=== PATIENT | female | born 1990 | race Caucasian/White ===

== ENCOUNTER 2016-12-28 00:48 | Inpatient (IN) | payer OTHER ==
[2016-12-28 01:25] LABS: ROM Internal QC QC Line Present
[2016-12-28] MEDS ORDERED: Sodium Citrate/Citric Acid* 15 ML UDC PO ONE ×2 (01:57→02:43)
[2016-12-28] MEDS ORDERED: ceFOXitin 2 GM IVPREMIX* 2 GM/50 ML BAG IVPB ONE (01:57)
[2016-12-28] MEDS ORDERED: ceFOXitin 2 GM IVPREMIX* 2 GM/50 ML BAG ONE (02:28)
[2016-12-28] MEDS ORDERED: Sodium Citrate/Citric Acid* 15 ML UDC ONE (02:28)
[2016-12-28] MEDS ORDERED: Morphine PF AMP (0.5MG/ML)* 5 MG/10 ML AMP ONE (02:33)
[2016-12-28] MEDS ORDERED: Ondansetron INJ* 2 MG/ML VIAL ONE (02:35)
[2016-12-28] MEDS ORDERED: OXYTOCIN* 10 UNITS/ML 1 ML VIAL ONE (02:35)
[2016-12-28] MEDS ORDERED: Buffered Lidocaine 1% SYR 3ML* 3 ML/SYR SYRINGE INTRADERM ONE (02:43)
[2016-12-28] MEDS ORDERED: PROCHLORPERAZINE INJ 5 MG/ML 2 ML VIAL IV PRN ×2 (02:44→03:17)
[2016-12-28] MEDS ORDERED: HYDROmorphone* 1 MG/ML 1 ML SYR IV PRN (02:44)
[2016-12-28] MEDS ORDERED: Ondansetron INJ* 2 MG/ML VIAL IV PRN ×2 (02:44→03:17)
[2016-12-28] MEDS ORDERED: DiMENhydriNATE IV* 50 MG/ML VIAL IV PUSH PRN ×2 (02:44→03:17)
[2016-12-28] MEDS ORDERED: fentaNYL* 50 MCG/ML 2 ML VIAL (100 MCG VIAL) IV PRN (02:44)
[2016-12-28] MEDS ORDERED: Scopolamine 1.5 mg* PATCH TRANSDERM PRN ×2 (02:44→03:17)
[2016-12-28] MEDS ORDERED: diPHENhydraMINE IV* 50 MG/ML 1 ml VIAL (BENADRYL) IV PRN (03:17)
[2016-12-28] MEDS ORDERED: Naloxone* 0.4 MG/ML 1 ML VIAL IV PRN (03:17)
[2016-12-28] MEDS ORDERED: oxyCODONE/Acetamin 5/325 MG* TAB PO PRN ×2 (03:17→19:00)
[2016-12-28] MEDS ORDERED: Nalbuphine* 20 MG/ML 1 ML VIAL IV PRN (03:17)
[2016-12-28 03:27] LABS: Add Diff/Slide Review? Slide Review Added; Comments Flag Yes; Hematocrit 39 % (35-47); Hemoglobin 12.3 g/dl (12.0-16.0); Mean Corpuscular HGB Conc 32 g/dl (31-36); Mean Corpuscular Hemoglobin 27 pg (27-31); Mean Corpuscular Volume 83 fL (80-97); Mean Platelet Volume 9 um3 (7.4-10.4); Red Blood Count 4.63 10^6/ul (4.0-5.4); Red Cell Distribution Width 15 % (10.5-15); White Blood Count 13.8 10^3/ul (3.5-10.8)
[2016-12-28] MEDS ORDERED: HYDROmorphone* 1 MG/ML 1 ML SYR ONE ×2 (03:44→04:02)
[2016-12-28] MEDS ORDERED: EPHEDrine (Pressors)* 50 MG/ML VIAL ONE (04:04)
[2016-12-28] MEDS ORDERED: Phenylephrine IV* 40 MCG/ML 10 ML SYRINGE ONE (04:04)
[2016-12-28] MEDS ORDERED: Witch Hazel PAD* JAR TOPICAL PRN (04:17)
[2016-12-28] MEDS ORDERED: Dibucaine 1% 28.35 GM TUBE PR PRN (04:17)
[2016-12-28] MEDS ORDERED: Glycerin ADULT SUPP PR PRN (04:17)
[2016-12-28] MEDS ORDERED: Acetaminophen TAB* 325 MG PO PRN (04:17)
[2016-12-28] MEDS: Ibuprofen TAB* 600 MG PO PRN ×3 (08:34→21:32)
[2016-12-28] MEDS: Simethicone CHEW TAB* 80 MG PO SCH ×4 (08:34→21:32)
[2016-12-28] MEDS: Docusate CAP* 100 MG PO SCH ×3 (08:34→21:32)
[2016-12-28] MEDS ORDERED: Zolpidem TAB* 5 MG PO PRN (19:00)
--- NOTE | 2016-12-28 21:03 | PTEDU ---
Patient Name: JUAN NEFF JUAN NEFF selected video: Follow Me Mum: [facility] to view on 10/2016 at 9:02:22 PM from [id number]
[2016-12-29] MEDS: Ibuprofen TAB* 600 MG PO PRN ×3 (03:44→17:56)
[2016-12-29 06:07] LABS: Hematocrit 30 % (35-47); Hemoglobin 9.6 g/dl (12.0-16.0); Mean Corpuscular HGB Conc 32 g/dl (31-36); Mean Corpuscular Hemoglobin 26 pg (27-31); Mean Corpuscular Volume 83 fL (80-97); Mean Platelet Volume 8 um3 (7.4-10.4); Red Blood Count 3.64 10^6/ul (4.0-5.4); Red Cell Distribution Width 15 % (10.5-15); White Blood Count 12.1 10^3/ul (3.5-10.8)
[2016-12-29] MEDS: Ferrous Gluconate TAB* 324 MG TAB PO SCH ×2 (09:11→21:16)
[2016-12-29] MEDS: Simethicone CHEW TAB* 80 MG PO SCH ×3 (09:11→21:17)
[2016-12-29] MEDS: Docusate CAP* 100 MG PO SCH ×3 (09:11→21:16)
[2016-12-29] MEDS: oxyCODONE/Acetamin 5/325 MG* TAB PO PRN ×3 (09:14→21:16)
--- NOTE | 2016-12-29 12:42 | PTEDU ---
Patient Name: JUAN NEFF TAWANDAJUAN selected video: Never Ever Shake a Baby to view on 12/29/2016 at 12:41:33 PM from [id number]
[2016-12-30 00:11] VITALS: BP 124/81
[2016-12-30] MEDS: oxyCODONE/Acetamin 5/325 MG* TAB PO PRN (04:50)
[2016-12-30] MEDS: Ibuprofen TAB* 600 MG PO PRN (04:51)
[2016-12-30] MEDS: Simethicone CHEW TAB* 80 MG PO SCH (08:53)
[2016-12-30] MEDS: Docusate CAP* 100 MG PO SCH (08:54)
[2016-12-30] MEDS: Ferrous Gluconate TAB* 324 MG TAB PO SCH (08:54)
[2016-12-31] MEDS ORDERED: Scopolomine PATCH Remove* 1 NOTE MISC PATCH OFF ONE (02:44)
[2016-12-31] MEDS ORDERED: Scopolomine PATCH Remove* 1 NOTE MISC PATCH OFF PRN (05:00)
--- NOTE | 2017-01-02 09:52 | OP ---
DATE OF OPERATION: 12/28/16 - ROOM #[facility]CHOB-105 DATE OF : 89 SURGEON: Michael Alvarado MD COW RIDER: Constantino León, master certified rv technician. ANESTHESIOLOGIST: Kareem Remy MD ANESTHESIA: Spinal. PRE-OP DIAGNOSIS: Intrauterine at 38 weeks, breech presentation with spontaneous rupture of membranes. POST-OP DIAGNOSIS: Intrauterine at 38 weeks, dominga breech presentation with spontaneous rupture of membranes. OPERATIVE PROCEDURE: Primary low-transverse section. ESTIMATED BLOOD LOSS: 600 cc. URINE OUTPUT: Clear. IV FLUIDS: 4500 cc of crystalloid fluid. FINDINGS: Delivery of a viable male in dominga breech presentation with Apgars of 9 and 9, weight 8 pounds 8 ounces. The placenta was grossly intact with a 3-vessel cord noted. The uterus, adnexa, bowel, and bladder were all within normal limits. COMPLICATIONS: There were no complications. DESCRIPTION OF PROCEDURE: The patient was taken to the operating room, where she was identified. She was placed on the operating table, where a spinal anesthetic was obtained without difficulty. She was then placed in the supine position with a leftward tilt, prepped and draped in a normal sterile fashion. A Pfannenstiel skin incision was made with a knife and carried through to the underlying layer of fascia. The fascia was nicked in the midline and extended laterally with curved Hill scissors. The fascia was then grasped superiorly and inferiorly with Gigi clamps and dissected off sharply from the rectus muscle. The rectus muscle was in the midline bluntly. The peritoneum was then identified, grasped with pickups, entered sharply with Metzenbaum scissors, and extended superiorly, inferiorly bluntly. A bladder blade was inserted into the patient's abdomen. A low-transverse uterine incision was made with the knife about 3-cm above the bladder reflection. This incision was then extended laterally with bandage scissors. The 's breech body was grasped and the baby was delivered through a breech extraction without any complications. The nose and mouth were suctioned after delivery. The cord was clamped and cut, and the infant was handed off to awaiting machine leather trimmer. Cord bloods were obtained as well as cord gas with help. The placenta was then removed manually. The uterus was then exteriorized, cleared of all clot and debris using moist laparotomy sponges. The uterine incision was then closed using 0 Polysorb suture in a running locked fashion with a second imbricating layer of 0 Polysorb suture with good hemostasis noted at the uterine incision. The uterus was then returned to the patient's abdomen. The gutters were cleared of all clot and debris using moist laparotomy sponges and irrigation fluid, which was suctioned. The sponges and instruments were removed from the patient's abdomen. The peritoneum was then closed using 3-0 Polysorb suture in a running fashion. The fascia was closed using 0 Polysorb suture in running fashion and the skin was closed using 4-0 Monocryl subcuticular stitch. The patient tolerated the procedure well. Sponge, lap, and needle counts were correct x2. She was then transferred to recovery room area in stable condition. CC: [facility]* [id number] #: [id number]
== END 2016-12-30 10:59 | disposition home or self-care (01) | DRG 766 ==
LOC: MCHOBOUT 00:48 → MCHOB 01:57
PROVIDERS: ADMIT Obstetrics & Gynecology; ATTEND Obstetrics & Gynecology
PROC: 4A1HX4Z Monitoring of Products of Conception, Cardiac Electrical Activity, External Approach (ICD-10-PCS; principal; 2016-12-29)
PROC: 10D00Z1 Extraction of Products of Conception, Low, Open Approach (ICD-10-PCS; 2016-12-29)
DX: O32.1XX0 Maternal care for breech presentation, not applicable or unspecified (principal); Z37.0 Single live birth; Z3A.38 38 weeks gestation of pregnancy
CPT/HCPCS: 36415; 84112; 85025; 86850; 86900; 86901; A9270-GY; J0694; J1170; J2405; J2590